=== PATIENT | male | born 1980 | race Two or more races ===

== ENCOUNTER 2018-01-28 11:34 | Emergency (ER) | payer MEDICAID ==
[~2018-01-28] VITALS: Ht 172.7 cm; Wt 68.0 kg
[2018-01-28 11:38] VITALS: BP 123/71
[2018-01-28] MEDS ORDERED: TETRACAINE HCL/PF 0.5% UD 2 ML BOTTLE ONE (11:50)
[2018-01-28] MEDS ORDERED: FLUORESCEIN SODIUM OPHTH 1 EA STRIP ONE (11:50)
[2018-01-28] MEDS ORDERED: TETRACAINE HCL/PF 0.5% UD 2 ML BOTTLE OP ONE (12:30)
[2018-01-28] MEDS ORDERED: FLUORESCEIN SODIUM OPHTH 1 EA STRIP OP ONE (12:30)
== END 2018-01-28 12:30 | disposition home or self-care (01) ==
LOC: ER 11:36
DX: H18.821 Corneal disorder due to contact lens, right eye (principal)
CPT/HCPCS: 99283; A4606; Z7610